=== PATIENT | male | born 1950 | race Caucasian/White ===

== ENCOUNTER 2020-09-19 11:09 | Emergency (ER) | payer MEDICARE ==
[~2020-09-19] VITALS: Ht 172.7 cm; Wt 90.7 kg
[~2020-09-19 11:09] MED LIST: ONDA4ODT MM; OXYACE5T PO
== END 2020-09-19 11:20 | disposition left against medical advice (07) ==
LOC: ER 11:09
DX: Z53.21 Procedure and treatment not carried out due to patient leaving prior to being seen by health care provider (principal)

== ENCOUNTER 2020-11-20 13:42 | Emergency (ER) | payer MEDICARE ==
[~2020-11-20] VITALS: Ht 170.2 cm; Wt 90.3 kg
[2020-11-20] MEDS ORDERED: SULFASALAZINE500 M3 PO (14:33)
[2020-11-20] MEDS ORDERED: IMURAN50 MG PO (14:33)
[2020-11-20] MEDS ORDERED: NAPROXEN500 MG PO (14:33)
[2020-11-20] MEDS ORDERED: CYCL10 PO (15:21)
== END 2020-11-20 15:37 | disposition home or self-care (01) ==
LOC: ER 13:42
DX: M43.6 Torticollis (principal); Z79.899 Other long term (current) drug therapy
CPT/HCPCS: 72040; 96372; 99283-25; A9270; J1885

== ENCOUNTER 2021-01-29 11:33 | Emergency (ER) | payer MEDICARE ==
[~2021-01-29] VITALS: Ht 170.2 cm; Wt 88.9 kg
[~2021-01-29 11:33] MED LIST changes: +CYCL10 PO; +IMURAN50 MG PO; +NAPROXEN500 MG PO; +SULFASALAZINE500 M3 PO
[2021-01-29 12:28] LABS: BASOPHILS ABSOLUTE AUTO 0.03 K/mm3 (0.00-0.23); BASOPHILS PERCENT AUTO 1 % (0-2); EOSINOPHILS ABSOLUTE AUTO 0.33 K/mm3 (0.00-0.68); EOSINOPHILS PERCENT AUTO 6 % (0-6); Hematocrit 39.1 % (37.0-53.0); Hemoglobin 13.3 g/dL (13.5-17.5); IMMATURE GRAN ABSOLUTE AUTO 0.01 K/mm3 (0.00-0.10); IMMATURE GRAN PERCENT AUTO 0 % (0-1); LYMPHOCYTES PERCENT AUTO 22 % (21-46); MONOCYTES ABSOLUTE AUTO 0.36 K/mm3 (0.16-1.47); MONOCYTES PERCENT AUTO 7 % (4-13); Mean Corpuscular HGB 30.4 pg (26.0-34.0); Mean Corpuscular Volume 89 fL (80-100); Mean Platelet Volume 9.5 fL (9.1-12.4); NEUTROPHILS PERCENT AUTO 65 % (41-73); Platelet Count 301 K/mm3 (150-400); RDW Coefficient Variation 11.9 % (11.7-14.2); RDW Standard Deviation 38.8 fL (35.1-46.3); Red Blood Cell Count 4.38 M/mm3 (4.30-5.90); White Blood Cell Count 5.53 K/mm3 (4.00-11.30)
[2021-01-29 12:52] LABS: Alanine Aminotransfer (ALT/SGP 20 U/L (12-78); Albumin, Blood 3.6 g/dL (3.4-5.0); Albumin/Globulin Ratio 0.9 (0.8-1.8); Alk Phos 85 U/L (50-136); Anion Gap 3 mmol/L (6-16); Aspartate Aminotrans (AST/SGOT 14 U/L (12-37); Bilirubin, Total 0.6 mg/dL (0.1-1.0); Blood Urea Nitrogen 12 mg/dL (8-24); Bun/Creatinine Ratio 18.5 (12.0-20.0); CO2, Blood 27 mmol/L (21-32); Calcium, Blood 8.9 mg/dL (8.5-10.1); Chloride, Blood 104 mmol/L (98-108); Creatinine, Blood 0.65 mg/dL (0.60-1.20); Globulin, Blood 3.9 g/dL (2.2-4.0); Glomerular Filtration Rate >60 (60-); Glucose, Blood 90 mg/dL (70-99); Potassium, Blood 4.4 mmol/L (3.5-5.5); Sodium, Blood 134 mmol/L (136-145); Total Protein, Blood 7.5 g/dL (6.4-8.2); Troponin I <0.015 ng/mL (0.000-0.040)
== END 2021-01-29 15:00 | disposition home or self-care (01) ==
LOC: ER 11:33
PROVIDERS: Physician Assistant
DX: R42 Dizziness and giddiness (principal); Z79.899 Other long term (current) drug therapy
CPT/HCPCS: 36415; 71046; 80053; 84443; 84484; 85025; 93005; 93010; 99284-25

== ENCOUNTER → 2021-04-16 | Outpatient (CLI) | payer MEDICARE ==
[2021-04-16 11:31] LABS: Source, Urine Clean Catch
[2021-04-16 15:24] LABS: Appearance, Urine Clear (Clear); Bilirubin, Urine Neg (Neg); Blood, Urine 1+ (Neg); Color, Urine Yellow (P-Yellow); Glucose Qualitative, Urine Neg (Neg); Ketones, Urine Neg (Neg); Leukocyte Esterase, Urine Neg (Neg); Nitrite, Urine Neg (Neg); Protein, Urine 1+ (Neg); Specific Gravity, Urine 1.015 (1.003-1.022); Urobilinogen, Urine NORM (Normal)
[2021-04-16 16:16] LABS: Bacteria Few /hpf; Red Blood Cells, Urine 0-2 /hpf (0-2); Squamous Epithelial Cells Few /hpf (Few); White Blood Cells, Urine 0-2 /hpf (0-5)
== END | disposition home or self-care (01) ==
LOC: LAB 11:30 → LAB SHORT 11:30
PROVIDERS: Physician Assistant
DX: R32 Unspecified urinary incontinence (principal)
CPT/HCPCS: 81001

== ENCOUNTER → 2021-04-21 | Outpatient (CLI) | payer MEDICARE ==
[2021-04-21 16:38] LABS: Source, Urine Clean Catch
[2021-04-21 18:47] LABS: Bacteria Rare /hpf; Red Blood Cells, Urine 0-2 /hpf (0-2); Squamous Epithelial Cells Rare /hpf (Few); White Blood Cells, Urine Rare /hpf (0-5)
== END | disposition home or self-care (01) ==
LOC: LAB SHORT 16:37 → LAB 16:37
PROVIDERS: Physician Assistant
DX: R32 Unspecified urinary incontinence (principal)
CPT/HCPCS: 81015

== ENCOUNTER → 2021-05-03 | Outpatient (CLI) | payer MEDICARE ==
[2021-05-03 11:10] LABS: Source, Urine Clean Catch
[2021-05-03 14:00] LABS: Appearance, Urine Clear (Clear); Bilirubin, Urine Neg (Neg); Blood, Urine 1+ (Neg); Color, Urine Yellow (P-Yellow); Glucose Qualitative, Urine Neg (Neg); Ketones, Urine Neg (Neg); Leukocyte Esterase, Urine Neg (Neg); Nitrite, Urine Neg (Neg); Protein, Urine 1+ (Neg); Specific Gravity, Urine 1.015 (1.003-1.022); Urobilinogen, Urine NORM (Normal); pH, Urine 6.5 (5.0-8.0)
[2021-05-03 14:24] LABS: Mucus Light (0-Heavy); White Blood Cells, Urine 0-2 /hpf (0-5)
[2021-05-03 14:25] LABS: Bacteria Few /hpf; Squamous Epithelial Cells Not Seen /hpf (Few)
== END | disposition home or self-care (01) ==
LOC: LAB 11:09 → LAB SHORT 11:09
PROVIDERS: Physician Assistant
DX: R82.90 Unspecified abnormal findings in urine (principal)
CPT/HCPCS: 81001

== ENCOUNTER 2021-12-02 19:23 | Emergency (ER) | payer MEDICARE ==
[~2021-12-02] VITALS: Ht 172.7 cm; Wt 86.2 kg
== END 2021-12-02 20:57 | disposition home or self-care (01) ==
LOC: ER 19:23
DX: R03.0 Elevated blood-pressure reading, without diagnosis of hypertension (principal); M06.9 Rheumatoid arthritis, unspecified; Z87.891 Personal history of nicotine dependence; Z79.899 Other long term (current) drug therapy
CPT/HCPCS: 99282

== ENCOUNTER → 2022-05-02 | Outpatient (CLI) | payer MEDICARE ==
[2022-05-05 10:30] LABS: Stool Occult Bld Immuno 1 Positive (NEGATIVE)
== END | disposition home or self-care (01) ==
LOC: LAB SHORT 11:30 → LAB 11:30
PROVIDERS: Physician Assistant
DX: Z12.11 Encounter for screening for malignant neoplasm of colon (principal)
CPT/HCPCS: G0328

== ENCOUNTER 2023-11-06 08:16 | Day surgery (SDC) | payer MEDICARE ==
[~2023-11-06] VITALS: Ht 170.2 cm; Wt 83.7 kg
[~2023-11-06 08:16] MED LIST changes: +Lactated Ringer's 1,000 ML IV ONE; +propofoL 50 ML IV ONE
[2023-11-06] MEDS ORDERED: ATOR10 (08:30)
[2023-11-06] MEDS ORDERED: VITAMIN D31000 UNI1 (08:31)
[2023-11-06] MEDS ORDERED: B COMPLEX WITH1 EACH (08:31)
[2023-11-06] MEDS ORDERED: Prinivil10 MG (08:32)
[2023-11-06] MEDS ORDERED: DUTA.5 (08:32)
[2023-11-06] MEDS ORDERED: TAMS.4ER (08:32)
[2023-11-06] MEDS ORDERED: Lactated Ringer's 1,000 ML IV ONE (09:18)
[2023-11-06 10:28] VITALS: BP 117/66
== END 2023-11-06 10:30 | disposition home or self-care (01) ==
LOC: ORSCSDS 08:16
PROVIDERS: Internal Medicine Gastroenterology
PROC: 0DBK8ZX Excision of Ascending Colon, Via Natural or Artificial Opening Endoscopic, Diagnostic (ICD-10-PCS; principal; 2023-11-06 09:30)
DX: R19.5 Other fecal abnormalities (principal); K63.5 Polyp of colon; Z87.891 Personal history of nicotine dependence; Z79.899 Other long term (current) drug therapy
CPT/HCPCS: 88305; J2704; J7120

== ENCOUNTER 2024-05-24 23:51 | Inpatient (IN) | payer MEDICARE ==
[~2024-05-24] VITALS: Ht 170.2 cm; Wt 82.7 kg
[~2024-05-24 23:51] MED LIST changes: +ATOR10 PO; +B COMPLEX WITH1 EACH; +DUTA.5; -Lactated Ringer's 1,000 ML IV ONE; +Prinivil10 MG; +TAMS.4ER; +VITAMIN D31000 UNI1; -propofoL 50 ML IV ONE
[2024-05-25] VITALS (29 sets, daily range): BP systolic 93–140; BP diastolic 51–115
[2024-05-25] MEDS ORDERED: IMURAN50 MG PO (00:03)
[2024-05-25] MEDS ORDERED: SILDENAFIL CITR20 M1 PO (00:03)
[2024-05-25] MEDS ORDERED: TAMSULOSIN HCL0.4 M1 PO (00:04)
[2024-05-25] MEDS ORDERED: [UNRECOGNIZED DRUG - CODE] PO (00:04)
[2024-05-25 00:24] LABS: BASOPHILS ABSOLUTE AUTO 0.03 K/mm3 (0.00-0.23); BASOPHILS PERCENT AUTO 0 % (0-2); EOSINOPHILS ABSOLUTE AUTO 0.19 K/mm3 (0.00-0.68); EOSINOPHILS PERCENT AUTO 3 % (0-6); Hematocrit 26.5 % (37.0-53.0); Hemoglobin 9.2 g/dL (13.5-17.5); IMMATURE GRAN ABSOLUTE AUTO 0.03 K/mm3 (0.00-0.10); IMMATURE GRAN PERCENT AUTO 0 % (0-1); LYMPHOCYTES ABSOLUTE AUTO 1.39 K/mm3 (0.84-5.20); LYMPHOCYTES PERCENT AUTO 18 % (21-46); MONOCYTES ABSOLUTE AUTO 0.55 K/mm3 (0.16-1.47); MONOCYTES PERCENT AUTO 7 % (4-13); Mean Corpuscular HGB 32.4 pg (26.0-34.0); Mean Corpuscular HGB Conc 34.7 g/dL (31.5-36.5); Mean Corpuscular Volume 93 fL (80-100); Mean Platelet Volume 10.3 fL (9.1-12.4); NEUTROPHILS ABSOLUTE AUTO 5.37 K/mm3 (1.96-9.15); NEUTROPHILS PERCENT AUTO 71 % (41-73); Platelet Count 215 K/mm3 (150-400); RDW Coefficient Variation 11.6 % (11.7-14.2); RDW Standard Deviation 39.8 fL (35.1-46.3); Red Blood Cell Count 2.84 M/mm3 (4.30-5.90); White Blood Cell Count 7.56 K/mm3 (4.00-11.30)
[2024-05-25] MEDS ORDERED: Pantoprazole Sodium 40 MG Injection IV ONE (00:35)
[2024-05-25] MEDS ORDERED: NS 1,000 ML IV SCH ×2 (00:35→14:00)
[2024-05-25 00:36] LABS: International Normalized Ratio 1.26; Prothrombin Time Results 13.3 Sec (9.7-11.5)
[2024-05-25 01:09] LABS: Albumin, Blood 2.9 g/dL (3.4-5.0); Albumin/Globulin Ratio 1.3 (0.8-1.8); Bilirubin, Total 0.5 mg/dL (0.1-1.0); Calcium, Blood 7.6 mg/dL (8.5-10.1); Globulin, Blood 2.3 g/dL (2.2-4.0); Potassium, Blood 4.3 mmol/L (3.5-5.5); Total Protein, Blood 5.2 g/dL (6.4-8.2)
[2024-05-25 01:18] LABS: Bun/Creatinine Ratio 47.7 (12.0-20.0); Creatinine, Blood 1.07 mg/dL (0.60-1.20)
[2024-05-25] MEDS ORDERED: Pantoprazole Sodium 40 MG in NS 50 ML IV SCH (01:20)
[2024-05-25] MEDS ORDERED: Ondansetron HCl 2 MG / ML 2ML Vial IV PRN (08:05)
[2024-05-25] MEDS ORDERED: FLU VACC TS2024-25(6MOS UP)/PF 45 MCG/0.5 ML SYRINGE IM PRN (08:05)
[2024-05-25 09:39] LABS: Hematocrit 23.3 % (37.0-53.0)
[2024-05-25] MEDS ORDERED: NAPR500 PO (11:13)
[2024-05-25] MEDS ORDERED: KRILL OIL 5001 EACH PO (11:14)
[2024-05-25] MEDS ORDERED: Vitamin B-Comp1 EAC7 PO (11:14)
[2024-05-25 11:38] LABS: Hematocrit 25.3 % (37.0-53.0); Hemoglobin 8.8 g/dL (13.5-17.5)
[2024-05-25] MEDS ORDERED: NS 250 ML IV PRN (12:35)
[2024-05-25] MEDS ORDERED: Lactated Ringer's 1,000 ML IV SCH (16:50)
--- NOTE | 2024-05-25 17:12 | NUR ---
165-PATIENT TO DAY SURGERY VIA CESILIARLAURYN,ACCOMPANIED BY . PATIENT DENIES PAIN AND NO C/O VERBALIZED.
[2024-05-25] MEDS ORDERED: propofoL 20 ML IV ONE (17:18)
--- NOTE | 2024-05-25 17:28 | NUR ---
05/25/24 1728 Shanae Purvis PRIOR TO START OF SEDATION: CONFIRMED AND REVIEWED H&P, MEDCICATIONS, ALLERGIES, MEDICAL HISTORY, RESPIRATORY HISTORY, VITAL SIGNS, 3-LEAD EKG, CONSENTS, AND PHYSICIAN ORDERS. PATIENT CONFIRMS NPO STATUS AND AGREES WITH SCHEDULED PROCEDURE. MONITOR INTACT WITH CONTINUOUS PULSE OXIMETRY, CAPNOGRAPHY, 3-LEAD EKG, INTERMITTENT BP. SUPPLEMENTAL O2 TO BE TITRATED THROUGHOUT PROCEDURE TO MAINTAIN O2 SATURATION ABOVE 90%. PATIENT DETERMINED TO BE ASA APPROPRIATE FOR PROPOFOL SEDATION PRIOR TO START OF PROCEDURE BY DR. DYKES
--- NOTE | 2024-05-25 18:11 | NUR ---
CONFIRMED WITH PCU LEAD NURSE THAT CONTINUOUS TELEMETRY TRANSMITTING.
--- NOTE | 2024-05-25 18:13 | NUR ---
ADMIT NOTE/SHIFT SUMMARY PT ARRIVED TO PCU FROM ED VIA ED STRETCHER AT APPROX 1000. PT AMBULATED FROM ED STRETCHER TO PCU BED. PT A&OX4. SP02>90% ON RA. TELEMETRY SHOWS NSR, HR 70'S-80'S, VVS. DENIES PAIN. UP TO BATHROOM THIS SHIFT TO HAVE BM, BLACK LARGE TARRY. PT EXPRESSED DIZZINESS ON TOILET AFTER HAVING BM. RN STATED BSC FOR FURTHER USES. PROTONIX GTT INFUSING PER EMAR. PT RECEIVED 1 UNIT PRBC PER ORDERS. THEN MD DYKES IN ROOM, PT DOWN TO SURGICAL FOR EGD THIS AFTERNOON. PT JUST ARRIVED BACK TO ROOM APPROX 1815. IN ROOM, UPDATED BY MD DYKES. LAB IN ROOM TO DRAW H&H. PT ORIENTED TO ROOM, CALL LIGHT. MED REC DONE. CALL LIGHT IN REACH.
[2024-05-25 18:42] LABS: Hematocrit 26.1 % (37.0-53.0); Hemoglobin 8.9 g/dL (13.5-17.5)
[2024-05-25 21:55] LABS: Hematocrit 22.7 % (37.0-53.0); Hemoglobin 7.9 g/dL (13.5-17.5)
--- NOTE | 2024-05-25 22:14 | NUR ---
UPDATE RECIEVED HBG LEVEL 7.9, DROPPED FROM 8.9. CONACTED NIGHT RESIDENT; OKAY TO GIVE 2ND UNIT OF PRBCS.
[2024-05-26] VITALS (8 sets, daily range): BP systolic 107–161; BP diastolic 49–86
[2024-05-26 04:25] LABS: Hematocrit 24.8 % (37.0-53.0); Hemoglobin 8.5 g/dL (13.5-17.5); Mean Corpuscular HGB 30.8 pg (26.0-34.0); Mean Corpuscular HGB Conc 34.3 g/dL (31.5-36.5); Mean Corpuscular Volume 90 fL (80-100); Mean Platelet Volume 9.9 fL (9.1-12.4); Platelet Count 177 K/mm3 (150-400); RDW Coefficient Variation 13.6 % (11.7-14.2); RDW Standard Deviation 44.8 fL (35.1-46.3); Red Blood Cell Count 2.76 M/mm3 (4.30-5.90); White Blood Cell Count 8.97 K/mm3 (4.00-11.30)
--- NOTE | 2024-05-26 04:50 | NUR ---
SHIFT SUMMARY ASSUMED CARE OF PT AT 1900. PT A&O4, COOPERATIVE IN ANSWERING ADMISSION HISTORY QUESTIONS AND ABLE TO ADDRESS SELF APPROPRIATELY. PT DENIES CP AND SOB BUT DID HAVE SEVERAL BLACK TARRY STOOLS OVERNIGHT, DIZZINESS AND SOFT BP. HGB DROPPED FROM 8.9 TO 7.9. CALLED OVERNIGHT MD FOR CLARIFICATION/VERIFICATION TO GIVE 2ND UNIT OF PRBCS. APPROVED. PT'S LUNGS REMAINED CLEAR AFTER UNIT GIVEN AND PROTONIX GTT CONTINUING. BED IN LOWEST POSITION AND CALL LIGHT WITHIN REACH.
[2024-05-26 04:51] LABS: Bun/Creatinine Ratio 40.9 (12.0-20.0); Calcium, Blood 7.9 mg/dL (8.5-10.1); Creatinine, Blood 0.73 mg/dL (0.60-1.20); Potassium, Blood 3.9 mmol/L (3.5-5.5)
[2024-05-26] MEDS ORDERED: NS 50 ML IV ONE (08:27)
[2024-05-26 10:06] LABS: Hematocrit 24.2 % (37.0-53.0); Hemoglobin 8.4 g/dL (13.5-17.5)
[2024-05-26 12:22] LABS: Hematocrit 27.8 % (37.0-53.0); Hemoglobin 9.5 g/dL (13.5-17.5)
[2024-05-26 18:00] LABS: Hematocrit 24.2 % (37.0-53.0); Hemoglobin 8.5 g/dL (13.5-17.5)
--- NOTE | 2024-05-26 18:18 | NUR ---
SHIFT SUMMARY NO ACUTE CHANGES THIS SHIFT. PT A&OX4. SP02>90% ON RA. TELEMETRY SHOWS NSR, HR 70'S. VSS. PT DENIES PAIN BUT C/O OF RESTLESS LEGS, CHRONIC ISSUE. TRIED SCD'S BUT PT STATES THEYRE TOO CLAUSTRAPHOBIC. UP TO BSC X4 TO HAVE BLACK TARRY STOOLS, SOME SMALLER/BURGUNDY TOWARDS END OF SHIFT. TRENDING HBG, MOST RECENT 9.5 DOWN TO 8.5. FLUIDS INFUSED PER EMAR, DC'D THIS SHIFT. PROTONIX STILL INFUSING PER EMAR. MD DYKES IN ROOM TO ASSESS. MD MILLER IN ROOM TO ASSESS. IN ROOM MOST OF DAY. CALL LIGHT IN REACH.
[2024-05-27] VITALS (9 sets, daily range): BP systolic 99–155; BP diastolic 56–92
[2024-05-27] MEDS ORDERED: LORazepam 1 MG Tab PO ONE (03:00)
[2024-05-27 04:50] LABS: Hemoglobin 8.9 g/dL (13.5-17.5); Mean Corpuscular HGB 31.2 pg (26.0-34.0); Mean Corpuscular HGB Conc 35.6 g/dL (31.5-36.5); Mean Corpuscular Volume 88 fL (80-100); Mean Platelet Volume 10.1 fL (9.1-12.4); Platelet Count 188 K/mm3 (150-400); RDW Coefficient Variation 13.3 % (11.7-14.2); RDW Standard Deviation 42.8 fL (35.1-46.3); Red Blood Cell Count 2.85 M/mm3 (4.30-5.90); White Blood Cell Count 9.09 K/mm3 (4.00-11.30)
--- NOTE | 2024-05-27 04:54 | NUR ---
SHIFT SUMMARY ASSUMED CARE OF PT AT 1900. PT A&O4, COOPERATIVE IN CARE AND ABLE TO EXPRESS SELF APPROPRIATELY. PT'S VSS AND NO REPORTS OF BLACK TARRY STOOL OVERNIGHT. PT DENIES CP AND SOB. PT APPEARS MORE ANXIOUS [id number], CALLED RESIDENT REQUESTING SOMETHING FOR ANXIETY AND MD ORDERED 1X DOSE OF ATIVAN. NO REPORTS OF ANXIETY SINCE. BED IN LOWEST POSITION AND CALL LIGHT WITHIN REACH.
--- NOTE | 2024-05-27 17:44 | NUR ---
SHIFT SUMMARY NO ACUTE CHANGES DURING SHIFT. PROTONIX GTT RUNNING. PT DOWNGRADED TO MEDICAL/NO-TELE. WALKED THE UNIT SEVERAL TIMES TODAY AND TOLLERATED WELL. NO BM DURING MY SHIFT. D/C POSSIBLE TOMORROW PENDING BIOPSY RESULTS.
[2024-05-27] MEDS ORDERED: QUEtiapine Fumarate 25 MG Tab PO ONE (20:20)
[2024-05-28 01:00] VITALS: BP 136/79
[2024-05-28] MEDS ORDERED: Pregabalin 75 MG Cap PO SCH (01:00)
--- NOTE | 2024-05-28 01:42 | NUR ---
UPDATE WHEN ATTEMPTING TO INSERT IV, PT STARTED REPORTED INCREASING DIZZINESS, NAUSEA, WELL VISION CHANGES. REPORTS SEEING BLUE SPOTS AND NARROWING OF VISION. 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 PT WAS SITTING AT BEDSIDE AND INSTRUCTED TO LAY BACK DOWN SUPINE. FOOT OF THE BED ELEVATED. PT'S VITALS TAKEN WITH MILD DROP IN BLOOD PRESSURE WITH SBP IN THE 90'S AND HR IN THE 70'S. CONTINUED TO CYCLE BLOOD PRESSURES RN ARON AND PRIMARY RN JACOB TO BEDSIDE WITH EKG. PT ATTEMPTED TO GET OUT OF BED SEVERAL TIMES TO HELP WITH HIS RLS, BUT EDUCATED ON INCREASED FALL RISK AND POTENTIAL TO MAKE HIS SYMPTOMS WORSE. EKG PERFORMED AND BLOOD PRESSURE STARTED TO INCREASE WITH SBP 110-150'S AFTER SOME TIME. PT ENDORSED FEELING BETTER AND RETURN TO NORMAL VISION. DR. AQUINO INFORMED OF EVENT WITH MD TO LOOK INTO CHART AND PUT IN ORDERS.
[2024-05-28] MEDS ORDERED: LORazepam 0.5 MG Tab PO ONE (03:05)
--- NOTE | 2024-05-28 03:05 | NUR ---
UPDATE PT REMAINS AWAKE AND RESTLESS, UP TO CHAIR TO SITTING ON SIDE OF BED, PACING IN ROOM, LYING DOWN FOR 10-15 MIN AND THEN BACK UP, UNABLE TO SLEEP, CIWA SCORE OF 2, DENIES GUTIERREZ, NO TREMORS OR PARAXOMAL SWEATING NOTED, ALERT AND ORIENTED X4, PT STATES HIS RESTLESS LEGS ARE KEEPING HIM UP AND CANT SLEEP. PT HAS BEEN MEDICATED WITH SEROQUEL 25 MG PO AND LYRICA 75MG PO THIS SHIFT AND STILL UNABLE TO SLEEP. CALLED AND SPOKE WITH MD REGARDING ABOVE WITH NEW ORDERS RECEIVED RO 0.5MG ATIVAN PO X1
[2024-05-28 03:26] VITALS: BP 135/66
[2024-05-28 04:18] LABS: Hemoglobin 8.2 g/dL (13.5-17.5); Mean Corpuscular HGB 30.9 pg (26.0-34.0); Mean Corpuscular HGB Conc 35.7 g/dL (31.5-36.5); Mean Corpuscular Volume 87 fL (80-100); Platelet Count 206 K/mm3 (150-400); RDW Coefficient Variation 12.8 % (11.7-14.2); RDW Standard Deviation 39.8 fL (35.1-46.3); Red Blood Cell Count 2.65 M/mm3 (4.30-5.90); White Blood Cell Count 10.05 K/mm3 (4.00-11.30)
--- NOTE | 2024-05-28 05:50 | NUR ---
SHIFT SUMMARY ASSUMED CARE OF PT AT 1900, AFEBRILE, VSS, ALERT AND ORIENTED X4, RESTLESS MOST OF NIGHT,WITH ONE EPISODE OF DIZZINESS AND VISION NARROWING THAT RESOLVED WITHOUT INTERVENTION, MD AWARE, PT ANXIOUS AND RESTLESS MOST OF NIGHT WITH SEROQUEL AND LYRICA GIVEN PO WITHOUT SUCCESS, PT RESTING WITH EYES CLOSED AT THIS TIME AFTER ATIVAN 0.5MG PO GIVEN AT 0315, NO DISTRESS NOTED, PROTONIX GTT INFUSING AT 8 MG/HR TO LEFT UPPER ARM PIV, NO BM THIS SHIFT SIDE RAILS UP X2 CALL LIGHT IN REACH
[2024-05-28 08:16] VITALS: BP 134/70
[2024-05-28] MEDS ORDERED: Pantoprazole Sodium 40 MG Tab PO SCH (16:30)
[2024-05-28] MEDS ORDERED: PANT40 PO (16:48)
--- NOTE | 2024-05-28 17:46 | NUR ---
DISCHARGE Patient to be driven home by spouse. Sent home with all belongings Discharge instructions and education reviewed, questions answered. IV removed. Follow up with PCP and Surgeon scheduled.
== END 2024-05-28 17:23 | disposition home or self-care (01) | DRG 378 ==
LOC: ER 23:51 → PCU 05-25 08:00
PROVIDERS: Internal Medicine; Student in an Organized Health Care Education/Training Program; Surgery; ADMIT Internal Medicine
PROC: 30233N1 Transfusion of Nonautologous Red Blood Cells into Peripheral Vein, Percutaneous Approach (ICD-10-PCS; 2024-05-25)
PROC: 0DB78ZX Excision of Stomach, Pylorus, Via Natural or Artificial Opening Endoscopic, Diagnostic (ICD-10-PCS; principal; 2024-05-25 17:00)
DX: K25.4 Chronic or unspecified gastric ulcer with hemorrhage (principal); D62 Acute posthemorrhagic anemia; E87.1 Hypo-osmolality and hyponatremia; E83.51 Hypocalcemia; E78.5 Hyperlipidemia, unspecified; M06.9 Rheumatoid arthritis, unspecified; N40.0 Benign prostatic hyperplasia without lower urinary tract symptoms; Z79.899 Other long term (current) drug therapy; Z87.891 Personal history of nicotine dependence; Z98.890 Other specified postprocedural states
CPT/HCPCS: 36415; 36430; 74174; 80048; 80053; 82272; 85014; 85018; 85025; 85027; 85384; 85610; 85730; 86850; 86900; 86901; 86923; 88305; 88341; 88342; 93005; 93010; 96361; 96365-59; 96366; 96376-59; 99285-25; A9270; J2470; J2704; J7030; J7120; P9016; Q9967

== ENCOUNTER 2024-08-09 08:07 | Day surgery (SDC) | payer MEDICARE, OTHER ==
[~2024-08-09] VITALS: Ht 170.2 cm; Wt 86.2 kg
[~2024-08-09 08:07] MED LIST changes: +KRILL OIL 5001 EACH PO; +Lactated Ringer's 1,000 ML IV ONE; +NAPR500 PO; +PANT40 PO; +REVATIO20 MG PO; +SILDENAFIL CITR20 M1 PO; +TAMSULOSIN HCL0.4 M1 PO; +Vitamin B-Comp1 EAC7 PO; +Vitamin D1000 UNI1 PO; +[UNRECOGNIZED DRUG - CODE] PO; +propofoL 50 ML IV ONE
[2024-08-09] MEDS ORDERED: AZAT50 (08:21)
[2024-08-09] MEDS ORDERED: ATOR10 (08:21)
[2024-08-09] MEDS ORDERED: Lactated Ringer's 1,000 ML IV ONE (09:29)
[2024-08-09 10:30] VITALS: BP 138/80
== END 2024-08-09 10:25 | disposition home or self-care (01) ==
LOC: ORSCSDS 08:07
PROVIDERS: Surgery
PROC: 0DJ08ZZ Inspection of Upper Intestinal Tract, Via Natural or Artificial Opening Endoscopic (ICD-10-PCS; principal; 2024-08-09 09:30)
DX: Z87.11 Personal history of peptic ulcer disease (principal); K25.4 Chronic or unspecified gastric ulcer with hemorrhage; Z87.891 Personal history of nicotine dependence; Z79.899 Other long term (current) drug therapy
CPT/HCPCS: J2704; J7120

== ENCOUNTER 2025-03-31 08:59 | Emergency (ER) | payer MEDICARE, OTHER ==
[~2025-03-31] VITALS: Ht 172.7 cm; Wt 89.4 kg
[~2025-03-31 08:59] MED LIST changes: +ATOR10; +AZAT50; -Lactated Ringer's 1,000 ML IV ONE; -propofoL 50 ML IV ONE
[2025-03-31 10:02] LABS: BASOPHILS ABSOLUTE AUTO 0.04 K/mm3 (0.00-0.23); BASOPHILS PERCENT AUTO 1 % (0-2); EOSINOPHILS ABSOLUTE AUTO 0.32 K/mm3 (0.00-0.68); EOSINOPHILS PERCENT AUTO 5 % (0-6); Hematocrit 39.5 % (37.0-53.0); Hemoglobin 13.8 g/dL (13.5-17.5); IMMATURE GRAN ABSOLUTE AUTO 0.01 K/mm3 (0.00-0.10); IMMATURE GRAN PERCENT AUTO 0 % (0-1); LYMPHOCYTES ABSOLUTE AUTO 1.84 K/mm3 (0.84-5.20); LYMPHOCYTES PERCENT AUTO 29 % (21-46); MONOCYTES ABSOLUTE AUTO 0.68 K/mm3 (0.16-1.47); MONOCYTES PERCENT AUTO 11 % (4-13); Mean Corpuscular HGB Conc 34.9 g/dL (31.5-36.5); Mean Corpuscular Volume 91 fL (80-100); NEUTROPHILS ABSOLUTE AUTO 3.40 K/mm3 (1.96-9.15); NEUTROPHILS PERCENT AUTO 54 % (41-73); NRBC ABSOLUTE 0.00 K/mm3 (0.00-0.02); NRBC Auto 0.0 /100 WBC (0.0-0.2); Platelet Count 240 K/mm3 (150-400); RDW Coefficient Variation 11.1 % (11.7-14.2); RDW Standard Deviation 38.0 fL (35.1-46.3)
[2025-03-31 10:12] LABS: Source, Urine Clean Catch
[2025-03-31 10:13] LABS: Osmolality, Serum 280.0 mos/KG (275-300)
[2025-03-31 10:28] LABS: Anion Gap 9.0 mmol/L (3-11); Blood Urea Nitrogen 16.0 mg/dL (8-24); CO2, Blood 30.0 mmol/L (21-32); Calcium, Blood 8.8 mg/dL (8.5-10.1); Chloride, Blood 95.0 mmol/L (98-108); Creatinine, Blood 0.79 mg/dL (0.60-1.20); Glucose, Blood 94.0 mg/dL (70-99); Potassium, Blood 4.5 mmol/L (3.5-5.5); Sodium, Blood 129.0 mmol/L (136-145)
[2025-03-31 10:41] LABS: Bilirubin, Urine Neg (Neg); Color, Urine Yellow (P-Yellow); Glucose Qualitative, Urine Neg (Neg); Ketones, Urine Neg (Neg); Leukocyte Esterase, Urine Neg (Neg); Protein, Urine Neg (Neg); Specific Gravity, Urine 1.015 (1.003-1.022); Urobilinogen, Urine NORM (Normal)
[2025-03-31 10:44] LABS: Osmolality, Urine 390 mos/kg (15-1400)
[2025-03-31 10:52] LABS: Sodium, Urine, Random 75 mmol/L (20-110)
[2025-03-31 12:41] VITALS: BP 151/84
== END 2025-03-31 12:42 | disposition home or self-care (01) ==
LOC: ER 08:59
PROVIDERS: Emergency Medicine
DX: E87.1 Hypo-osmolality and hyponatremia (principal); Z87.891 Personal history of nicotine dependence; Z79.899 Other long term (current) drug therapy
CPT/HCPCS: 80048; 81003; 83880; 83930; 83935; 84300; 85025; 93005; 93010; 99283-25